=== PATIENT | male | born 1965 | race American Indian/Alaskan Native ===

== ENCOUNTER 2019-02-14 09:36 | Emergency (ER) | payer SELFPAY ==
[2019-02-14 10:39] LABS: Bilirubin,Urine NEG (Negative); Blood,Urine NEG (Negative); Calcium Oxalate Crystals,Urine 2+; Color,Urine Yellow (Yellow); Mucus,Urine FEW /HPF; Protein,Urine <15 mg/dL mg/dL (Negative); Urobilinogen,Urine < 2.0 mg/dL (<2.0)
[2019-02-14 10:41] LABS: Basophils % (Auto) 0.5 % (0.0-1.8); Eosinophils # (Auto) 0.1 K/mm3 (0.0-0.4); Eosinophils % (Auto) 1.1 % (0.0-4.3); Hematocrit 39.2 % (35.5-45.6); Hemoglobin 12.7 gm/dl (11.8-15.2); Lymphocytes % (Auto) 15.1 % (13.4-35.0); Mean Corpuscular HGB Conc 32 % (32-34); Mean Corpuscular Volume 84 fl (84-94); Monocytes # (Auto) 0.5 K/mm3 (0.0-0.8); Monocytes % (Auto) 8.3 % (0.0-7.3); Platelet Count 211 K/mm3 (140-440); Red Blood Count 4.64 M/mm3 (3.65-5.03)
[2019-02-14 11:13] LABS: Alanine Aminotransferase 33 units/L (7-56); Albumin 4.2 g/dL (3.9-5); BUN/Creatinine Ratio 17; Blood Urea Nitrogen 17 mg/dL (9-20); Hemolysis Index 2
[2019-02-14 12:04] VITALS: BP 124/81
--- NOTE | 2019-02-14 12:11 | Emergency Department Report ---
ED Abdominal Pain HPI - General Chief Complaint: Abdominal Pain Stated Complaint: STOMACH PAIN Time Seen by Provider: 02/14/19 10:34 Source: patient Mode of arrival: Ambulatory Limitations: No Limitations - History of Present Illness Initial Comments: 53-year-old male to emergency department complaining of abdominal bloating, increased to 7 loose stool since drinking milk last night. States he does not drink on a regular basis, but didn't NOTE in few hours following ingestion began to have an upset stomach. Pupils no fever, chills, sweats, hemoptysis, hematemesis, hematochezia, chest pain, palpitations. Has not attempted to take anything [id number]. MD Complaint: abdominal pain Location: diffuse Radiation: none Migration to: no migration Severity scale (0 -10): 0 Quality: cramping Consistency: constant Improves With: nothing Worsens With: nothing Associated Symptoms: nausea, diarrhea. denies: dysuria, hematemesis - Related Data Previous Rx's Medication Instructions Recorded Last Taken Type Hyoscyamine Subl [Levsin Sl 0.125 0.125 mg SL Q4HR PRN #20 tablet 02/14/19 Unknown Rx TAB] Allergies Allergy/AdvReac Type Severity Reaction Status Date / Time No Known Allergies Allergy Unverified 02/14/19 09:38 ED Review of Systems ROS: Stated complaint: STOMACH PAIN Other details as noted in HPI Comment: All other systems reviewed and negative ED Past Medical Hx - Past Medical History Previous Medical History?: Yes Hx Hypertension: Yes - Surgical History Past Surgical History?: No - Social History Smoking Status: Never Smoker Substance Use Type: None - Medications Home Medications: Home Medications Medication Instructions Recorded Confirmed Last Taken Type Hyoscyamine Subl [Levsin Sl 0.125 0.125 mg SL Q4HR PRN #20 tablet 02/14/19 Unknown Rx TAB] ED Physical Exam - General Limitations: No Limitations General appearance: alert, in no apparent distress - Head Head exam: Present: atraumatic, normocephalic - Eye Eye exam: Present: normal appearance, PERRL, EOMI - ENT ENT exam: Present: mucous membranes moist - Neck Neck exam: Present: normal inspection - Respiratory Respiratory exam: Present: normal lung sounds bilaterally. Absent: respiratory distress - Cardiovascular Cardiovascular Exam: Present: regular rate, normal rhythm. Absent: systolic murmur, diastolic murmur, rubs, gallop - GI/Abdominal GI/Abdominal exam: Present: soft, normal bowel sounds, other (some increased tympany throughout. Bowel sounds are positive). Absent: guarding, rebound, rigid, bruit, pulsatile mass, hernia - Rectal Rectal exam: Present: deferred - Extremities Exam Extremities exam: Present: normal inspection - Back Exam Back exam: Present: normal inspection - Neurological Exam Neurological exam: Present: alert, oriented X3 - Psychiatric Psychiatric exam: Present: normal affect, normal mood - Skin Skin exam: Present: warm, dry, intact, normal color. Absent: rash ED Course Vital Signs 02/14/19 02/14/19 09:39 12:03 Temperature 97.9 F Pulse Rate 74 70 Respiratory 18 14 Rate Blood Pressure 129/86 Blood Pressure 124/81 [Left] O2 Sat by Pulse 98 100 Oximetry ED Medical Decision Making - Lab Data Result diagrams: 02/14/19 09:51 02/14/19 10:09 - Medical Decision Making 3-year-old male with abdominal discomfort following a spontaneous ingestion of a dairy products. Likely symptoms are secondary to lactose. No evidence of any infectious process. He does not have a surgical abdomen. Advised him the appropriate diet and [id number] medications to help his symptomatology. Encouraged him to follow-up with her PCP or gastroneurologic 24-48 hours for repeat evaluations. He's been about follow-up to the ER sooner should his condition is worsening - Differential Diagnosis early evolution of gastroenteritis, lactose intolerance, acid reflux, malig Critical care attestation.: If time is entered above; I have spent that time in minutes in the direct care of this critically ill patient, excluding procedure time. ED Disposition Clinical Impression: Abdominal pain, Flatulence/gas pain/belching Disposition: - TO HOME OR SELFCARE Is pt being admited?: No Does the pt Need Aspirin: No Condition: Stable Instructions: Lactose-Controlled Diet (ED), Abdominal Pain (ED) Prescriptions: Hyoscyamine Subl [Levsin Sl 0.125 TAB] 0.125 mg SL Q4HR PRN #20 tablet PRN Reason: Spasms Referrals: REY MANNING MD [Primary Care Provider] - 3-5 Days
== END 2019-02-14 12:03 | disposition home or self-care (01) ==
LOC: ED 09:36
DX: R14.2 Eructation (principal); R14.3 Flatulence; R14.0 Abdominal distension (gaseous); I10 Essential (primary) hypertension; Z79.899 Other long term (current) drug therapy
CPT/HCPCS: 36415; 80053; 81001; 85025; 99283